=== PATIENT | male | born 1960 | race Caucasian/White ===

== ENCOUNTER 2020-12-14 17:31 | Emergency (ER) | payer OTHER, SELFPAY ==
--- NOTE | ~2020-12-14 | CT_ITS ---
EXAMINATION: CT ABDOMEN AND PELVIS WITH CONTRAST CLINICAL INFORMATION: Right inguinal pain COMPARISON: None TECHNIQUE: Multidetector volumetric images were obtained from the superior aspect of the liver through the pubic symphysis following administration 85 mL of Omnipaque 350 intravenous contrast. Sagittal and coronal reformatted images were obtained on the technologist's workstation. Oral contrast: No This CT examination was performed using dose optimization techniques as appropriate, variously including the following: *Automated exposure control *Adjustment of mA and/or kV according to patient size (this includes techniques or standardized protocols for targeted exams where dose is matched to indication/reason for exam; i.e. extremities or head) *Use of iterative reconstruction technique DLP: 524 mGy-cm FINDINGS: LUNG BASES: The visualized lung bases are unremarkable. Some minimal basilar atelectasis is present. LIVER, GALLBLADDER, AND BILIARY TREE: The liver is normal in size, shape, and attenuation. No focal hepatic lesion or biliary ductal dilatation is present. The gallbladder is unremarkable with no evidence of radiopaque gallstones, gallbladder wall thickening, or obvious pericholecystic inflammatory changes. PANCREAS: Unremarkable. SPLEEN: Unremarkable. ADRENAL GLANDS: Unremarkable. KIDNEYS AND URETERS: The kidneys are normal in size, shape, and attenuation. A left renal cyst is noted. No solid renal masses are seen. No hydronephrosis, hydroureter, or calculi seen. No perinephric stranding. BLADDER: Unremarkable. GASTROINTESTINAL TRACT: A tiny hiatal hernia is present. The small and large bowel are unremarkable. The appendix is unremarkable. ABDOMINAL WALL: No significant hernia is appreciated. LYMPH NODES: No retroperitoneal lymphadenopathy is seen. VASCULAR: Unremarkable. PELVIC VISCERA: Prostate is enlarged measuring 5.7 x 4.4 x 5.6 cm. Seminal vesicles appear normal. In the right inguinal region there is a 2.6 x 1.6 x 1.6 cm mass present which has the shape of the testicle. It is possible that this could represent an undescended testicle. Ultrasound is recommended for further evaluation OSSEOUS STRUCTURES: Unremarkable. CT/CT abdomen pelvis w con IMPRESSION: 1. Ovoid mass right inguinal region which could represent an undescended testicle. Ultrasound is recommended for further evaluation. 2. BPH. 3. No other significant abnormality is seen. Incidental note made of a small hiatal hernia and a left renal cyst.
--- NOTE | ~2020-12-14 | XR_ITS ---
EXAMINATION: XR CHEST CLINICAL INFORMATION: Cough COMPARISON: None TECHNIQUE: Frontal view of the chest was obtained. FINDINGS: No significant abnormality is noted involving the heart, lungs, mediastinum, bony thorax or soft tissues. XR/XR chest 1V IMPRESSION: Unremarkable examination.
--- NOTE | ~2020-12-14 | US_ITS ---
EXAMINATION: US PELVIS, LIMITED/FOLLOW UP CLINICAL INFORMATION: Right inguinal pain. COMPARISON: 12/14/2020. TECHNIQUE: Imaging of the right inguinal region was performed with curved and high-frequency linear transducers. FINDINGS: At the area of clinical concern, there is an area of marked posterior shadowing, possibly iatrogenic. No discrete associated mass is identified. There are no enlarged inguinal lymph nodes. There are no drainable fluid collections. US/US pelvic limited IMPRESSION: No pathologically enlarged inguinal lymph nodes. No drainable fluid collections. Imaging at the area of clinical concern corresponds to an area of prior surgery. There is marked posterior shadowing. No discrete mass is identified. The prior CT raised the possibility of an undescended testicle. Consider correlation with scrotal ultrasound for further evaluation. Alternatively, consider real time evaluation with a Radiologist present.
[2020-12-14 19:03] VITALS: BP 121/84; PULSE 60; RESP 18; TEMP 36.6; O2SAT 9; BMI 26.6
--- NOTE | 2020-12-14 21:20 | ECG_ITS ---
Test Reason : ABDOMINAL PAIN Blood Pressure : / mmHG Vent. Rate : 054 BPM Atrial Rate : 054 BPM P-R Int : 154 ms QRS Dur : 086 ms QT Int : 434 ms P-R-T Axes : 044 079 039 degrees QTc Int : 411 ms Sinus bradycardia Otherwise normal ECG No previous ECGs available Referred By: Margie Harper Electronically Signed By:LAURA EDGAR MD
--- NOTE | 2020-12-14 21:21 | ED_ITS ---
HPI - Abdominal Pain General Chief Complaint: Abdominal Pain Stated Complaint: ?hernia Time Seen by Provider: 12/14/20 21:20 Source: patient Mode of arrival: ambulatory History of Present Illness HPI narrative: This is a 60-year-old male with history of BPH who presents with onset of sharp pain at the right inguinal where he had a repair done with mesh in 2006. Patient states that the pain started this morning and is not associated with fevers, chills, nausea, vomiting, obstipation, and last bowel movement was this morning. Patient states that throughout the day the pain has become more sharp and intense and denies association with urinary pain/burning/frequency or scrotal pain. Related Data Allergies Allergy/AdvReac Type Severity Reaction Status Date / Time clams Allergy Mild RASH Verified 12/14/20 19:03 Review of Systems Review of Systems Pertinent positives and negatives as stated in HPI 10 point review of systems is otherwise negative. Physical Exam Vital Signs: Vital Signs: Last Vital Signs Temp 97.8 F 12/15/20 02:00 Pulse 64 12/15/20 02:00 Resp 18 12/15/20 02:00 BP 125/89 12/15/20 02:00 Pulse Ox 98 12/15/20 02:00 Body Mass Index 26.6 VITAL SIGNS: Reviewed. GENERAL: Well developed, well nourished, mild pain. EARS: Ext canals without abnormality, TMs non-bulging and non-erythematous NOSE: Nares patent bilateral OROPHARYNX: no oral lesions noted, posterior pharynx clear NECK: Supple, no adenopathy LUNGS: Normal breath sounds. CARDIOVASCULAR: Regular rate and rhythm without noted murmurs, no JVD or lower extremity edema. ABDOMEN: Soft, tenderness with palpation of small soft mass at the right inguinal more prominent when patient instructed to cough, non-distended with bowel sounds. NEUROLOGIC: Alert and oriented x 4. Course Course Course Narrative: This is a 60-year-old male with history and clinical presentation most consistent with recurrent right inguinal hernia and suspect strangulated fat, doubt SBO or diverticulitis. On review of all investigations there are no acute findings. Urinalysis is negative and on review of CT scan there is a small ovoid mass that was further evaluated with ultrasound and found not to be consistent with lymph node tissue and given clinical exam most consistent with recurrent hernia. This case was discussed with the on-call surgeon who recommends discharge with NSAIDs and follow up next week with surgery. All of the results and findings were discussed with the patient at bedside to include the plan of treatment and he was discharged in stable condition. MDM - Abdominal Pain Lab Data Result diagrams: 12/14/20 21:44 12/14/20 21:44 Labs: Lab Results 12/14/20 12/14/20 12/14/20 Range/Units 21:31 21:34 21:44 WBC 5.8 (4.8-10.8) X10*3/uL RBC 5.02 (4.60-5.80) X10*6/uL Hgb 14.5 (14.0-18.0) g/dl Hct 44.7 (42-52) % MCV 89.0 (80-98) fL MCH 28.9 (27.0-33.0) pg MCHC 32.4 (31.0-36.0) g/dl RDW 14.1 (11.0-16.0) % Plt Count 199 (160-400) X10*3/uL MPV 11.3 (9.4-12.4) fL Immature Gran % (Auto) 0.2 (0.0-0.4) % Neut % (Auto) 47.2 (45-73) % Lymph % (Auto) 38.0 (20-40) % [place] % (Auto) 9.6 (2-11) % Eos % (Auto) 4.3 H (0-4) % Baso % (Auto) 0.7 (0-2) % Lymph # (Auto) 2.2 (1.2-4.9) X10*3/uL [place] # (Auto) 0.6 (0.1-1.2) X10*3/uL Eos # (Auto) 0.3 (0.0-0.4) X10*3/uL Baso # (Auto) 0.0 (0.0-0.2) X10*3/uL Abs Immat Gran (auto) 0.01 (0.00-0.03) X10*3/uL Absolute Neuts (auto) 2.8 (2.0-8.3) X10*3/uL Absolute Nucleated RBC 0.000 (0.0-0.012) X10*3/uL Nucleated RBC % (auto) 0.0 (0.0-0.2) /100WBC Sodium (135-145) mmol/L Potassium (3.3-5.1) mmol/L Chloride (96-108) mmol/L Carbon Dioxide (22-29) mmol/L Anion Gap (12-20) BUN (9-16) mg/dL Creatinine (0.5-1.4) mg/dL Estim Creat Clear Calc Estimated GFR Random Glucose (60-115) mg/dL Lactic Acid (0.5-2.0) mmol/L Calcium (8.4-10.2) mg/dL Total Bilirubin (0.0-1.0) mg/dL AST (5-37) U/L ALT (0-40) U/L Alkaline Phosphatase (39-117) U/L Total Protein (6.5-8.0) g/dL Albumin (3.5-5.0) g/dL Urine Color YELLOW Urine Appearance CLEAR Urine pH 5.5 (5.0-8.0) Ur Specific [place] >= 1.030 H (1.005-1.025) Urine Protein NEG (NEG-TRACE) MG/DL Urine Glucose (UA) NEG (NEG) MG/DL Urine Ketones NEG (NEG) MG/DL Urine Blood NEG (NEG) Urine Nitrite NEG (NEG) Ur Leukocyte Esterase NEG (NEG) COVID-19 (LENNY) Negative (Negative) COVID-19 Clin Com See Note 12/14/20 12/14/20 Range/Units 21:44 21:44 WBC (4.8-10.8) X10*3/uL RBC (4.60-5.80) X10*6/uL Hgb (14.0-18.0) g/dl Hct (42-52) % MCV (80-98) fL MCH (27.0-33.0) pg MCHC (31.0-36.0) g/dl RDW (11.0-16.0) % Plt Count (160-400) X10*3/uL MPV (9.4-12.4) fL Immature Gran % (Auto) (0.0-0.4) % Neut % (Auto) (45-73) % Lymph % (Auto) (20-40) % [place] % (Auto) (2-11) % Eos % (Auto) (0-4) % Baso % (Auto) (0-2) % Lymph # (Auto) (1.2-4.9) X10*3/uL [place] # (Auto) (0.1-1.2) X10*3/uL Eos # (Auto) (0.0-0.4) X10*3/uL Baso # (Auto) (0.0-0.2) X10*3/uL Abs Immat Gran (auto) (0.00-0.03) X10*3/uL Absolute Neuts (auto) (2.0-8.3) X10*3/uL Absolute Nucleated RBC (0.0-0.012) X10*3/uL Nucleated RBC % (auto) (0.0-0.2) /100WBC Sodium 143 (135-145) mmol/L Potassium 4.2 (3.3-5.1) mmol/L Chloride 108 (96-108) mmol/L Carbon Dioxide 29 (22-29) mmol/L Anion Gap 10 L (12-20) BUN 14 (9-16) mg/dL Creatinine 0.91 (0.5-1.4) mg/dL Estim Creat Clear Calc 78.8 Estimated GFR > 60 Random Glucose 91 (60-115) mg/dL Lactic Acid 0.6 (0.5-2.0) mmol/L Calcium 8.9 (8.4-10.2) mg/dL Total Bilirubin 0.4 (0.0-1.0) mg/dL AST 18 (5-37) U/L ALT 18 (0-40) U/L Alkaline Phosphatase 71 (39-117) U/L Total Protein 6.9 (6.5-8.0) g/dL Albumin 4.3 (3.5-5.0) g/dL Urine Color Urine Appearance Urine pH (5.0-8.0) Ur Specific [place] (1.005-1.025) Urine Protein (NEG-TRACE) MG/DL Urine Glucose (UA) (NEG) MG/DL Urine Ketones (NEG) MG/DL Urine Blood (NEG) Urine Nitrite (NEG) Ur Leukocyte Esterase (NEG) COVID-19 (LENNY) (Negative) COVID-19 Clin Com ECG Data Attestation: I personally reviewed and interpreted this ECG as follows: Prior ECG tracings: not available for review Interpretation: Sinus bradycardia, HR-54, no evidence of acute ischemia, IA/QRS/QTC are within normal limits. Discharge Plan Discharge Clinical Impression: Recurrent right inguinal hernia Patient Disposition: Home, Self-Care Instructions: Inguinal Hernia (ED) Additional Instructions: 1. Tylenol 1000 mg, orally, every 6 hours as needed for pain control. Do not exceed 4000 mg within 24 hours. 2. Ibuprofen 600 mg, orally with milk or food, every 6 hours as needed for pain control. Take this medication in conjunction with the Tylenol for increased symptom relief. 3. May utilize heating pad to area for additional symptom relief. 4. Do not do any shoveling of snow, lifting of greater than 1 gal of milk, and follow-up with surgery by calling the office on Thursday. The referral is listed below. Do not hesitate to return to the emergency department should she develop any fevers, chills, nausea, vomiting, or the inability to pass gas from below. Referrals: Ag Duron PA [Primary Care Provider] - 2 days (Re-evaluation of right inguinal recurrent hernia.) Ld Timmons MD [Physician] - 2 days (Please evaluate patient for suspected right inguinal hernia recurrence without obstructive symptoms.) [facility] Past Medical History Source: nursing notes reviewed Medical History Chronic low back pain Enlarged prostate Surgical History H/O hernia repair Social History Social History Alcohol intake: former Smoking Status: Never smoker Use of substances other than those prescribed or required for medical reasons: No Advance Directives: No Advance Directives Information Provided: Yes
[2020-12-14 21:26] VITALS: BP 132/80; PULSE 54; RESP 18; TEMP 36.4; O2SAT 100
[2020-12-14 21:51] LABS: MANUAL DIFF FLAG NO
[2020-12-14] MEDS: 0.9 % Sodium Chloride 1,000 ML 999 ML IV (21:52)
[2020-12-14 21:54] LABS: Basophils Percent Auto 0.7 % (0-2); Eosinophils Absolute Auto 0.3 X10*3/uL (0.0-0.4); Eosinophils Percent Auto 4.3 % (0-4); Hematocrit 44.7 % (42-52); Hemoglobin 14.5 g/dl (14.0-18.0); Imm Gran Abs Auto 0.01 X10*3/uL (0.00-0.03); Imm Gran Pct Auto 0.2 % (0.0-0.4); Lymphocytes Absolute Auto 2.2 X10*3/uL (1.2-4.9); Mean Corpuscular HGB Conc 32.4 g/dl (31.0-36.0); Mean Corpuscular Hemoglobin 28.9 pg (27.0-33.0); Mean Platelet Volume 11.3 fL (9.4-12.4); Monocytes Absolute Auto 0.6 X10*3/uL (0.1-1.2); Monocytes Percent Auto 9.6 % (2-11); Neutrophils Absolute Auto 2.8 X10*3/uL (2.0-8.3); Neutrophils Percent Auto 47.2 % (45-73); Platelet Count 199 X10*3/uL (160-400); Red Blood Count 5.02 X10*6/uL (4.60-5.80); Red Cell Distribution Width 14.1 % (11.0-16.0); White Blood Count 5.8 X10*3/uL (4.8-10.8)
[2020-12-14 21:57] LABS: Glucose Urine UA NEG (NEG); Leukocyte Esterase Urine NEG (NEG); Nitrite Urine NEG (NEG); PH 5.5 (5.0-8.0); Specific Gravity - Urine >= 1.030 (1.005-1.025); Urine Blood NEG (NEG); Urine Ketones NEG (NEG); Urine Protein NEG (NEG-TRACE)
[2020-12-14 21:58] LABS: Appearance Urine CLEAR; Color Urine YELLOW
[2020-12-14 22:09] LABS: Lactic Acid 0.6 mmol/L (0.5-2.0)
[2020-12-14 22:12] VITALS: BP 116/81; PULSE 66; RESP 18; TEMP 36.4; O2SAT 100
[2020-12-14 22:13] LABS: Alanine Aminotransferase 18 U/L (0-40); Albumin Level 4.3 g/dL (3.5-5.0); Alkaline Phosphatase 71 U/L (39-117); Anion Gap 10 (12-20); Aspartate Amino Transferase 18 U/L (5-37); Bilirubin Total 0.4 mg/dL (0.0-1.0); Blood Urea Nitrogen 14 mg/dL (9-16); Calcium 8.9 mg/dL (8.4-10.2); Carbon Dioxide 29 mmol/L (22-29); Chloride 108 mmol/L (96-108); Creatinine Clr Calc Pharmacy 78.8; Estimated Glomerular Filt Rate > 60; Glucose Random 91 mg/dL (60-115); Potassium 4.2 mmol/L (3.3-5.1); Sodium 143 mmol/L (135-145); Total Protein 6.9 g/dL (6.5-8.0)
[2020-12-14 22:13] LABS: COVID-19 Test Negative (Negative); IDNOW Serial# 9DD0AD1C
[2020-12-14] MEDS: iohexoL 350 MG/ML 100 ML INFUS..BTL IV (22:30)
[2020-12-14 22:44] VITALS: BP 99/52; PULSE 68; RESP 18; O2SAT 98
[2020-12-14 23:48] VITALS: BP 131/86; PULSE 61; RESP 18; TEMP 36.6; O2SAT 98
[2020-12-14] MEDS: Acetaminophen 325 MG TABLET 975 MG PO (23:59)
[2020-12-15] MEDS: Ketorolac Tromethamine 15 MG/ML VIAL IVPUSH
[2020-12-15 02:00] VITALS: BP 125/89; PULSE 64; RESP 18; TEMP 36.6; O2SAT 98
== END 2020-12-15 03:20 | disposition home or self-care (01) ==
PROVIDERS: Emergency Provider Student in an Organized Health Care Education/Training Program; PCP Physician Assistant Medical
DX: K40.91 Unilateral inguinal hernia, without obstruction or gangrene, recurrent (principal); Z20.822 Contact with and (suspected) exposure to COVID-19
CPT/HCPCS: 36415; 71045; 74177; 76857; 80053; 81003; 83605; 85025; 87635; 93005; 96361; 96374; 99284; J1885; Q9967

== ENCOUNTER → 2020-12-26 14:26 | Outpatient (BNVA) | payer OTHER, SELFPAY | PROVIDERS: PCP Physician Assistant Medical; Visit Provider Surgery | DX: R10.31 Right lower quadrant pain (principal) | CPT/HCPCS: 99202 ==

== ENCOUNTER 2021-09-23 11:38 | Day surgery (SDC) | payer OTHER, SELFPAY ==
[2021-09-17 15:13] VITALS: BMI 28.5
--- NOTE | 2021-09-20 09:39 | P.CONAN_ITS ---
Documented by User: Marylin Cohn NP 09/20/21 09:41 HPI - Anesthesia Eval Consult details Narrative: 60yo M for Colonoscopy PMFSH Active Problems Active Problems: All Active Problems (Updated 09/17/21 @ 12:36 by Carlyn Estrada RN) Severe right groin pain (Acute) Past Medical History Medical History (Updated 09/17/21 @ 12:36 by Carlyn Estrada RN) Chronic low back pain Enlarged prostate Post traumatic stress disorder (PTSD) Severe right groin pain Family History Family History Father History of cancer of unknown primary site Maternal Grandfather History of cancer of unknown primary site Surgical History Surgical History (Updated 09/17/21 @ 12:36 by Carlyn Estrada RN) H/O hernia repair Hx of colonoscopy Hx of hemorrhoidectomy Social History Social History Alcohol intake: former Patient Tobacco Use Status: Former Tobacco user Second Hand Smoke Exposure: No Use of substances other than those prescribed or required for medical reasons: No Are you DNR?: No Advance Directives: No Advance Directives Information Provided: Yes Advance Directives on File: No Meds Allergies Allergy/AdvReac Type Severity Reaction Status Date / Time clams Allergy Mild RASH Verified 12/26/20 14:38 Home Medications Medication Instructions Recorded Confirmed Last Taken Type finasteride 5 mg tablet 5 mg PO DAILY 12/26/20 Unknown History ibuprofen 600 mg tablet 600 mg PO Q8H PRN 12/26/20 09/21/21 History sertraline 50 mg tablet 50 mg PO DAILY 12/26/20 09/23/21 History tamsulosin 0.4 mg capsule 0.4 mg PO DAILY 12/26/20 Unknown History trazodone 100 mg tablet 100 mg PO DAILY 12/26/20 Unknown History Exam Exam Date and Time: September 20, 2021 0939 Height,Weight and Vital Signs: Height 5 ft 6 in Weight 80.286 kg Narrative Narrative: EKG 12/2020 Vent. Rate : 054 BPM ? ? Atrial Rate : 054 BPM ?? P-R Int : 154 ms? QRS Dur : 086 ms ? ? QT Int : 434 ms ? ? ? P-R-T Axes : 044 079 039 degrees ?? QTc Int : 411 ms ? Sinus bradycardia Otherwise normal ECG No previous ECGs available Assessment and Plan Assessment Anesthesia Assessment: Chart Reviewed Documented by User: Camilla Miller MD 09/23/21 12:11 [facility] Past Medical History Medical History (Updated 09/17/21 @ 12:36 by Carlyn Estrada, RN) Chronic low back pain Enlarged prostate Post traumatic stress disorder (PTSD) Severe right groin pain Family History Family History Father History of cancer of unknown primary site Maternal Grandfather History of cancer of unknown primary site Family history of problems with anesthesia: No Surgical History Surgical History (Updated 09/17/21 @ 12:36 by Carlyn Estrada RN) H/O hernia repair Hx of colonoscopy Hx of hemorrhoidectomy History of Problems with Anesthesia: No Social History Social History Alcohol intake: former Patient Tobacco Use Status: Former Tobacco user Second Hand Smoke Exposure: No Use of substances other than those prescribed or required for medical reasons: No Are you DNR?: No Advance Directives: No Advance Directives Information Provided: Yes Advance Directives on File: No Meds Allergies Allergy/AdvReac Type Severity Reaction Status Date / Time clams Allergy Mild RASH Verified 12/26/20 14:38 Home Medications Medication Instructions Recorded Confirmed Last Taken Type finasteride 5 mg tablet 5 mg PO DAILY 12/26/20 Unknown History ibuprofen 600 mg tablet 600 mg PO Q8H PRN 12/26/20 09/21/21 History sertraline 50 mg tablet 50 mg PO DAILY 12/26/20 09/23/21 History tamsulosin 0.4 mg capsule 0.4 mg PO DAILY 12/26/20 Unknown History trazodone 100 mg tablet 100 mg PO DAILY 12/26/20 Unknown History Exam Airway Mallampati Class: II TM Dist: >3cm Neck ROM: Full Heart: rrr Lungs: cta Assessment and Plan Assessment Anesthesia Assessment: Anesthesia Plan Discussed and Chart Reviewed Final Anesthetic Review Family History of Problems with Anesthesia: No History of Problems with Anesthesia: No NPO: Yes (Sip water med) ASA Class: II Final Preanesthetic Review: No Changes in Pt Med Stat, Meds/Allgs Chart Reviewed and Consent Obtained/Reviewed Patient Risk: Intermediate Procedure Risk: Intermediate Anesthetic Plan Anesthetic Plan: MAC: Disposition: Standard PACU
[2021-09-23 11:53] VITALS: BP 115/74; PULSE 71; RESP 16; TEMP 36.2; O2SAT 98
[2021-09-23] MEDS: Lactated Ringers 1,000 ML 100 ML IVCONT (12:00)
--- NOTE | 2021-09-23 12:50 | HO.ANESPROP2 ---
[facility] Active Problems Active Problems: All Active Problems (Updated 09/17/21 @ 12:36 by Carlyn Estrada RN) Severe right groin pain (Acute) Past Medical History Medical History Chronic low back pain Enlarged prostate Post traumatic stress disorder (PTSD) Severe right groin pain Functional capacity: independent ambulation Family History Family History Father History of cancer of unknown primary site Maternal Grandfather History of cancer of unknown primary site Family history of problems with anesthesia: No Surgical History Surgical History (Updated 09/17/21 @ 12:36 by Carlyn Estrada RN) H/O hernia repair Hx of colonoscopy Hx of hemorrhoidectomy History of Problems with Anesthesia: No Social History Social History Alcohol intake: former Patient Tobacco Use Status: Former Tobacco user Second Hand Smoke Exposure: No Use of substances other than those prescribed or required for medical reasons: No Are you DNR?: No Advance Directives: No Advance Directives Information Provided: Yes Advance Directives on File: No Meds Allergies Allergy/AdvReac Type Severity Reaction Status Date / Time clams Allergy Mild RASH Verified 12/26/20 14:38 Active Medications: Current Medications Lactated Ringer's (Lr) 1,000 mls @ 100 mls/hr IVCONT .Q10H ASA Last Admin: 09/23/21 12:00 Dose: 100 mls/hr Documented by: Sodium Biphosphate/Sodium Phosphate (Sodium Phosphate,[place]-Dibasic 133 Ml Enema) 133 ml ID ONCE PRN PRN Reason: Poor Colonoscopy Prep Results Home Medications Medication Instructions Recorded Confirmed Last Taken Type finasteride 5 mg tablet 5 mg PO DAILY 12/26/20 Unknown History ibuprofen 600 mg tablet 600 mg PO Q8H PRN 12/26/20 09/21/21 History sertraline 50 mg tablet 50 mg PO DAILY 12/26/20 09/23/21 History tamsulosin 0.4 mg capsule 0.4 mg PO DAILY 12/26/20 Unknown History trazodone 100 mg tablet 100 mg PO DAILY 12/26/20 Unknown History Exam Exam Date and Time: September 23, 2021 1250 Height,Weight and Vital Signs: Height 5 ft 6 in Weight 80.286 kg Last Vital Signs Temp 97.2 F 09/23/21 11:53 Pulse 71 09/23/21 11:53 Resp 16 09/23/21 11:53 BP 115/74 09/23/21 11:53 Pulse Ox 98 09/23/21 11:53 Airway Mallampati Class: II TM Dist: >3cm Neck ROM: Full Heart: RRR Lungs: CTA Assessment and Plan Final Anesthetic Review Family History of Problems with Anesthesia: No History of Problems with Anesthesia: No ASA Class: II Final Preanesthetic Review: No Changes in Pt Med Stat Patient Risk: Low Procedure Risk: Low Anesthetic Plan Anesthetic Plan: MAC: Disposition: Standard PACU
[2021-09-23 13:46] VITALS: BP 115/74; PULSE 71; RESP 16; TEMP 36.2; O2SAT 98
--- NOTE | 2021-09-23 13:47 | P.BOP_ITS ---
Brief Operative Note Date of Service: 09/23/21 Pre-op diagnosis: Screening Post-op diagnosis: other (Colon polyp) Procedure: Colonoscopy to the cecum and TI with cold snare polypectomy Surgeon: Bert Godwin Anesthesia: MAC Was an Candle Wicker used for this Procedure?: No Estimated blood loss (mL): 2.0 Pathology: none sent Condition: stable Disposition: PACU
[2021-09-23 14:00] VITALS: BP 90/45; PULSE 79; RESP 20; O2SAT 97
--- NOTE | 2021-09-23 14:13 | HO.POSTANES ---
Post Anesthesia Evaluation Post Anesthesia Evaluation Vital Signs: Vital Signs Temp Pulse Resp BP Pulse Ox 09/23/21 14:00 79 20 90/45 L 97 09/23/21 13:46 97.2 F 71 16 115/74 98 09/23/21 11:53 97.2 F 71 16 115/74 98 Anesthesia: Monitored Mental Status: Awake Pain Control: Satisfactory Nausea/Vomiting: None Hydration: Adequate Anesthesia-Related Issues: No Anes. Related Issues
[2021-09-23 14:14] VITALS: BP 115/77; PULSE 60; RESP 20; TEMP 36.1; O2SAT 98
--- NOTE | 2021-09-23 15:04 | OP_ITS ---
SURGEON: Bert Godwin MD INDICATIONS: The patient presents for evaluation of colorectal cancer screening. Full consent has been obtained from him for this, including risks of bleeding and perforation. PREOPERATIVE DIAGNOSIS: Colorectal cancer screening. POSTOPERATIVE DIAGNOSIS: PROCEDURE PERFORMED: Colonoscopy to the cecum and terminal ileum with cold snare polypectomy. ESTIMATED BLOOD LOSS: COMPLICATIONS: ANESTHESIA: Monitored anesthesia care. ASSISTANTS: SPECIMENS: POSTOPERATIVE DIAGNOSES: Colorectal cancer screening, colon polyp, diverticulosis and internal hemorrhoids. DESCRIPTION OF PROCEDURE: The patient was placed in the left lateral decubitus position. The digital rectal exam revealed no abnormalities. The Olympus video pediatric colonoscope was entered into the rectum and advanced easily to the cecum. Once in the cecum, I did identify normal-appearing cecal pouch with appendiceal orifice and a normal-appearing ileocecal valve. The terminal ileum was cannulated and appeared normal. Scope was withdrawn back in the colon. The entire cecum and ileocecal valve appeared normal. The scope was slowly withdrawn assessing all mucosal surfaces carefully. Preparation was excellent. In the distal ascending colon, was an approximately 8 mm grossly adenomatous polyp, which was removed by cold snare polypectomy. The polypectomy site appeared clean, without any sign of residual polyp nor significant bleeding. However, the polyp was not recovered. I did not visualize any other polyps, colitis, nor angiodysplasia. There was a mild amount of sigmoid diverticulosis. In the rectum, scope was retroflexed visualizing small internal hemorrhoids, but no other pathology. The rectal mucosa appeared normal. The scope was straightened out and withdrawn from the patient. He tolerated the procedure well and was returned to the recovery area in stable condition. IMPRESSION: 1. Colon polyp, status post snare polypectomy, but not recovered. 2. Diverticulosis. 3. Internal hemorrhoids. PLAN: Given the gross appearance of the polyp, I would recommend a repeat colonoscopy in 5 years. He was advised not to use any aspirin and NSAIDs for 1 week. MD TORSTEN Orta/EMIR / [id number]
== END 2021-09-23 14:44 | disposition home or self-care (01) ==
PROVIDERS: PCP Physician Assistant Medical; Visit Provider Internal Medicine
PROC: 0DJD8ZZ Inspection of Lower Intestinal Tract, Via Natural or Artificial Opening Endoscopic (ICD-10-PCS; CPT 45378; principal; 2021-09-23 12:50)
DX: Z12.11 Encounter for screening for malignant neoplasm of colon (principal); D12.2 Benign neoplasm of ascending colon; K57.30 Diverticulosis of large intestine without perforation or abscess without bleeding; K64.8 Other hemorrhoids; N40.0 Benign prostatic hyperplasia without lower urinary tract symptoms; F43.10 Post-traumatic stress disorder, unspecified; Z79.899 Other long term (current) drug therapy
CPT/HCPCS: 45385

== ENCOUNTER 2021-11-19 12:51 | Emergency (ER) | payer OTHER, SELFPAY ==
--- NOTE | ~2021-11-19 | XR_ITS ---
EXAMINATION: XR LUMBOSACRAL SPINE CLINICAL INFORMATION: Back pain COMPARISON: None TECHNIQUE: Three views of the lumbosacral spine. FINDINGS: No acute fracture or traumatic malalignment. Vertebral body heights maintained. Small endplate osteophytes present throughout the lumbar spine. Moderate facet arthropathy at L4-L5 and L5-S1. Mild bilateral sacroiliac arthrosis. Paraspinal soft tissues unremarkable. Moderate constipation. XR/XR lumbar spine 2-3V IMPRESSION: No acute fracture or traumatic malalignment.
[2021-11-19 14:05] VITALS: BP 133/83; PULSE 82; RESP 18; TEMP 37; O2SAT 96; BMI 25.0
--- NOTE | 2021-11-19 15:28 | ED.BACK ---
HPI - Back Pain/Injury General Chief Complaint: Back Pain/Injury Stated Complaint: Back pain Time Seen by Provider: 11/19/21 15:22 Source: patient and old records reviewed Mode of arrival: ambulatory Limitations: no limitations History of Present Illness HPI Narrative: 61 years old male came in for evaluation low back pain for 2 days. No back pain started after patient was shoveling and was picking wood, patient prescribed pain as constant and severe 10/10 localized to the lower back with no radiation, pain is worse with movement and coughing or trying to bend. Pain is on radiating to the legs, no weakness, numbness, no urinary incontinence. Reviewing old records patient had a CT scan of the abdomen and pelvis less than a year ago, no concern of AAA. Related Data Home Medications Medication Instructions Recorded Confirmed finasteride 5 mg tablet 5 mg PO DAILY 12/26/20 ibuprofen 600 mg tablet 600 mg PO Q8H PRN 12/26/20 sertraline 50 mg tablet 50 mg PO DAILY 12/26/20 tamsulosin 0.4 mg capsule 0.4 mg PO DAILY 12/26/20 trazodone 100 mg tablet 100 mg PO DAILY 12/26/20 Previous Rx's Medication Instructions Recorded diazepam 5 mg tablet (Valium) 5 mg PO BID PRN #10 tab 11/19/21 oxycodone 5 mg tablet 5 mg PO BID PRN #10 tab 11/19/21 Allergies Allergy/AdvReac Type Severity Reaction Status Date / Time clams Allergy Mild RASH Verified 12/26/20 14:38 Review of Systems Review of Systems: All other systems are reviewed and are negative Constitutional: Reports as per HPI and Reports no additional constitutional complaints Eyes: Reports as per HPI and Reports no additional eye complaints Reports system reviewed and no additional complaints, except as documented Cardiovascular: Reports as per HPI and Reports no additional cardiovascular complaints Respiratory: Reports as per HPI and Reports no additional respiratory complaints Gastrointestinal: Reports as per HPI and Reports no additional gastrointestinal complaints Genitourinary: Reports no additional female genitourinary complaints Musculoskeletal: Reports no additional musculoskeletal complaints Skin/Breast: Reports system reviewed and no additional complaints, except as docu Psychiatric: Reports no additional psychiatric complaints Endocrine: Reports no additional endocrine complaints Hematologic/Lymphatic: Reports no additional hematologic/lymphatic complaints Allergic/Immunologic: Reports no additional allergic/immunologic complaints Reports system reviewed and no additional complaints, except as documented and Reports Abnormal speech present PMFSH Past Medical History Medical History Chronic low back pain Enlarged prostate Post traumatic stress disorder (PTSD) Severe right groin pain Surgical History H/O hernia repair Hx of colonoscopy Hx of hemorrhoidectomy Family History Family History Father History of cancer of unknown primary site Maternal Grandfather History of cancer of unknown primary site Social History Social History Alcohol intake: former Patient Tobacco Use Status: Former Tobacco user Second Hand Smoke Exposure: No Advance Directives: No Advance Directives Information Provided: No Physical Exam Vital Signs: Vital Signs: Last Vital Signs Temp 98.6 F 11/19/21 14:05 Pulse 82 11/19/21 14:05 Resp 18 11/19/21 14:05 BP 133/83 11/19/21 14:05 Pulse Ox 96 11/19/21 14:05 BMI result Body Mass Index 25.0 Vital signs have been reviewed as appeared to be correct. Blood pressure normal. Heart rate normal. Respiration rate normal. Temperature normal. Oxygen saturation normal. Appearance: Alert. Oriented X3. No acute distress. Head: Normal external exam. Normocephalic. Atraumatic. No Rosario signs noted. No raccoon eyes noted Eyes: PERRLA. EOMI. Conjunctiva and sclera normal. Eyelids normal. ENT: TM's Normal. Pharynx normal. Uvula midline. Moist mucous membranes. No trismus noted. No drooling noted. No muffled voice noted. Neck: Normal inspection. Neck supple. FROM. No adenopathy. Thyroid Normal. No meningeal signs. No neck mass noted. CVS: Normal heart rate and rhythm. Heart sound normal. No murmurs noted. Pulses normal throughout. Respiratory: No respiratory distress. Painless inspiration. Breath sounds normal. No wheezes/rales/rhonchi noted. Chest nontender. No accessory muscle usage noted or decreased air movement noted. Abdomen: Soft and nontender. Bowel sounds normal in all 4 quadrants. No distention noted. No organomegaly noted. No visible injury noted. Back: paraspinous muscle spasm, no point of tenderness. No step-off, no deformity. Skin: Skin warm and dry. Normal skin color. Normal skin turgor. No rashes/lesions/lacerations noted. Extremities: No lower extremity edema. Extremities exhibit normal range of motion. Extremities nontender. Neuro: Oriented X 3. Cranial nerve exam: II-XII are grossly intact No motor deficit. No sensory deficit. Reflexes normal. Course Course Course Narrative: Assessment and plan. 61-year-old male come in with constant low back pain, physical exam/x-ray is consistent with muscular pain. Patient has no neurological deficits. Will discharge the patient oxycodone/muscle relaxant. MDM - Back Pain/Injury Imaging Data Lumbar spine x-ray: Attestation: I personally reviewed and interpreted this imaging study as follows: Radiologist's impression: No acute fracture or traumatic malalignment. Vertebral body heights maintained. Small endplate osteophytes present throughout the lumbar spine. Moderate facet arthropathy at L4-L5 and L5-S1. Mild bilateral sacroiliac arthrosis. Paraspinal soft tissues unremarkable. Moderate constipation. Discharge Plan Discharge Clinical Impression: Strain of lumbar region Patient Disposition: Home, Self-Care Instructions: Back Pain (ED) Prescriptions: New oxycodone 5 mg tablet 5 mg PO BID PRN (Reason: pain) Qty: 10 RF: 0 diazepam [Valium] 5 mg tablet 5 mg PO BID PRN (Reason: muscle spasm) Qty: 10 RF: 0 No Action ibuprofen 600 mg tablet 600 mg PO Q8H PRN (Reason: Pain) RF: 0 tamsulosin 0.4 mg capsule 0.4 mg PO DAILY RF: 0 trazodone 100 mg tablet 100 mg PO DAILY RF: 0 sertraline 50 mg tablet 50 mg PO DAILY RF: 0 finasteride 5 mg tablet 5 mg PO DAILY RF: 0 Referrals: Ag Duron PA [Primary Care Provider] - 2 days
[2021-11-19] MEDS: oxyCODONE HCl Immed Release 5 MG TABLET PO (15:44)
[2021-11-19] MEDS: diazePAM 5 MG TABLET PO (15:45)
== END 2021-11-19 16:27 | disposition home or self-care (01) ==
LOC: HO.ED 15:53
PROVIDERS: Emergency Provider Emergency Medicine; PCP Physician Assistant Medical
DX: S39.012A Strain of muscle, fascia and tendon of lower back, initial encounter (principal); X50.0XXA Overexertion from strenuous movement or load, initial encounter; Y93.H1 Activity, digging, shoveling and raking; Y92.017 Garden or yard in single-family (private) house as the place of occurrence of the external cause; Y99.9 Unspecified external cause status
CPT/HCPCS: 72100; 99283

== ENCOUNTER 2022-03-09 11:38 | Emergency (ER) | payer OTHER, SELFPAY ==
[2022-03-09 11:45] VITALS: BP 127/88; PULSE 78; RESP 18; TEMP 36.8; O2SAT 99; BMI 28.2
--- NOTE | 2022-03-09 12:43 | ED_ITS ---
HPI - General Adult General Chief complaint: Skin/Abscess/Foreign Body Stated complaint: Allergic reaction Time Seen by Provider: 03/09/22 11:45 Source: patient Mode of arrival: ambulatory Limitations: no limitations History of Present Illness HPI narrative: 61-year-old male presents to ED for resolved allergic reaction. Patient states yesterday after eating clamps he felt his sensation of throat closing and itc hiness to skin that resolved with Benadryl. Patient states then last night when he woke up from sleep and had mild swelling of this left side of the face and left lip that resolved on its own after Benadryl. Patient presently states asymptomatic. Related Data Home Medications Medication Instructions Recorded Confirmed finasteride 5 mg tablet 5 mg PO DAILY 12/26/20 ibuprofen 600 mg tablet 600 mg PO Q8H PRN 12/26/20 sertraline 50 mg tablet 50 mg PO DAILY 12/26/20 tamsulosin 0.4 mg capsule 0.4 mg PO DAILY 12/26/20 trazodone 100 mg tablet 100 mg PO DAILY 12/26/20 Previous Rx's Medication Instructions Recorded diazepam 5 mg tablet (Valium) 5 mg PO BID PRN #10 tab 11/19/21 oxycodone 5 mg tablet 5 mg PO BID PRN #10 tab 11/19/21 diphenhydramine HCl 25 mg capsule 25 mg PO TID PRN 7 Days #21 cap 03/09/22 (Benadryl) epinephrine 0.3 mg/0.3 mL 0.3 mg (0.3 mL) IM Q4H PRN #2 ea 03/09/22 injection, auto-injector (EpiPen) famotidine 20 mg tablet (Pepcid) 20 mg PO BID 7 Days #14 tab 03/09/22 prednisone 20 mg tablet 40 mg PO DAILY 5 Days #10 tab 03/09/22 Allergies Allergy/AdvReac Type Severity Reaction Status Date / Time clams Allergy Mild RASH Verified 03/09/22 11:45 Review of Systems Review of Systems: Resolved allergic reaction Yes all other systems are reviewed and are negative PMFSH Past Medical History Medical History Chronic low back pain Enlarged prostate Post traumatic stress disorder (PTSD) Severe right groin pain Surgical History H/O hernia repair Hx of colonoscopy Hx of hemorrhoidectomy Family History Family History Father History of cancer of unknown primary site Maternal Grandfather History of cancer of unknown primary site Social History Social History Alcohol intake: former Patient Tobacco Use Status: Former Tobacco user Second Hand Smoke Exposure: No Advance Directives: No Advance Directives Information Provided: No Physical Exam ED Vital Signs: Vital Signs - 24 hr 03/09/22 11:45 Temperature 98.3 F Pulse Rate 78 Respiratory Rate 18 Blood Pressure 127/88 Pulse Oximetry 99 BMI result Body Mass Index 28.2 Const General: cooperative, healthy appearing, comfortable, no acute distress, well developed and alert Orientation/consciousness: patient oriented x3 HENMT Other: Negative for any facial swelling. Negative any lip swelling. Patient is speaking in full sentences. Negative any uvular swelling. Head: Yes normal to inspection, Yes No palpable skull fracture present, Yes normocephalic and Yes atraumatic Eyes General: appearance normal, both eyes and all related structures Neck Neck: Yes normal visual inspection, Yes full ROM, Yes no lymphadenopathy, Yes no meningeal signs, Yes trachea midline, No anterior neck swelling and No tender Chest Chest palpation & inspection: normal inspection of the chest and normal palpation of entire chest wall Resp Effort & Inspection: normal respiratory effort and able to speak in complete sentences Auscultation: clear to auscultation bilaterally Cardio Jugular venous distension: no JVD Heart sounds: S1 normal heart sound present and S2 normal heart sound present GI Inspection: Yes normal to inspection and No abdominal wall ecchymosis Palpation (GI): Soft to palpation, not firm, nontender, no guarding and not rigid General: No CVA tenderness and Yes no CVA tenderness Back/Spine/Pelvis Back: no CVA tenderness, No CVA tenderness and No sacral edema Skin General skin exam: no rashes or lesions noted and elasticity normal Neuro General: patient oriented x3, gait normal and no meningeal signs Cranial nerves: Yes CN's II-XII intact bilaterally Extrem General: Yes normal to inspection and Yes full ROM Psych Appearance: grossly normal, well kempt and not disheveled Course Course Course Narrative: Presently patient is symptomatic Reevaluation(s) Reevaluation #1: Due to patient's status sensation of throat closing yesterday. Patient was discharged epinephrine Benadryl, Solu-Medrol, and Pepcid Time: 12:53 Medical Decision Making MDM Narrative Medical decision making narrative: Allergic reaction Discharge Plan Discharge Clinical Impression: Allergic reaction Patient Disposition: Home, Self-Care Instructions: General Allergic Reaction (ED) Additional Instructions: You will be discharged with Benadry, prednisone, and Pepcid for allergic reaction. You will be also discharged with EpiPen to prevent anaphylaxis. Return to the ED for sensation of throat closing, lip swelling, shortness of breath, worsening rash, fever, chills, or any other concerning symptoms. Please follow-up with primary care provider Prescriptions: New diphenhydramine HCl [Benadryl] 25 mg capsule 25 mg PO TID PRN (Reason: allergic reaction) 7 Days Qty: 21 0RF prednisone 20 mg tablet 40 mg PO DAILY 5 Days Qty: 10 0RF famotidine [Pepcid] 20 mg tablet 20 mg PO BID 7 Days Qty: 14 0RF epinephrine [EpiPen] 0.3 mg/0.3 mL auto-injector 0.3 mg IM Q4H PRN (Reason: anaphylaxis) Qty: 2 0RF Rx Instructions: inject into thigh No Action oxycodone 5 mg tablet 5 mg PO BID PRN (Reason: pain) Qty: 10 0RF diazepam [Valium] 5 mg tablet 5 mg PO BID PRN (Reason: muscle spasm) Qty: 10 0RF ibuprofen 600 mg tablet 600 mg PO Q8H PRN (Reason: Pain) 0RF tamsulosin 0.4 mg capsule 0.4 mg PO DAILY 0RF trazodone 100 mg tablet 100 mg PO DAILY 0RF sertraline 50 mg tablet 50 mg PO DAILY 0RF finasteride 5 mg tablet 5 mg PO DAILY 0RF Interventions: ED Discharge Assessment Last Done: 03/09/22 13:09 Discharge Date/Time: 03/09/22 13:11 Print Language: Albanian
== END 2022-03-09 13:11 | disposition home or self-care (01) ==
PROVIDERS: Emergency Provider Emergency Medicine; PCP Physician Assistant Medical
DX: L50.0 Allergic urticaria (principal); Z79.899 Other long term (current) drug therapy
CPT/HCPCS: 99283

== ENCOUNTER 2023-12-14 08:09 | Outpatient (AMB) | payer OTHER, SELFPAY ==
--- NOTE | 2023-12-14 08:13 | MHC.OFFVIS ---
Intake Vital Signs 12/14/23 08:19 Height 5 ft 6 in Weight 177 lb BMI 28.6 BP 134/89 Blood Pressure Location Rt brachial Position Sitting Pulse 73 Intake Visit Reasons: Hemorrhoids Intake Note: This patient presents for an assessment for hemorrhoids. Pt c/o; reports no rectal bleeding or pain, reports no constipation. Die Trouble Shooter Required: No Accompanied by: Self / Same As Patient Allergies clams Allergy (Mild, Verified 12/14/23 08:17) RASH Medication List - Last Reconciled 12/14/23 by Ld Timmons MD aspirin (Adult Low Dose Aspirin) 81 mg PO DAILY buspirone 5 mg PO BID diazepam (Valium) 5 mg PO BID PRN diphenhydramine HCl (Benadryl) 25 mg PO TID PRN 7 days epinephrine (EpiPen) 0.3 mg (0.3 mL) IM Q4H PRN famotidine (Pepcid) 20 mg PO BID 7 days finasteride 5 mg PO DAILY ibuprofen 600 mg PO Q8H PRN oxycodone 5 mg PO BID PRN prednisone 40 mg (2 x 20 mg) PO DAILY 5 days sertraline 50 mg PO DAILY tamsulosin 0.4 mg PO DAILY trazodone 100 mg PO DAILY HPI Hemorrhoids HPI Details 63-year-old male referred for hemorrhoid issues. He says that for the past several years, he had been noticing his hemorrhoids to ?come out? and become swollen and painful. He says that this has been going on frequently more so lately. He says that he has been using stool softeners as well as a cream to help on these are out. He says [place] He says he had similar symptoms before that. He states that the symptoms have been bothering her anymore and he wants to undergo another hemorrhoidectomy. [facility] Medical History (Updated 12/14/23 @ 08:35 by Ld Timmons MD) Hemorrhoids that prolapse with straining and require manual replacement back inside anal canal Post traumatic stress disorder (PTSD) Severe right groin pain Enlarged prostate Chronic low back pain Surgical History Hx of hemorrhoidectomy Hx of colonoscopy H/O hernia repair Family History Father History of cancer of unknown primary site Maternal Grandfather History of cancer of unknown primary site Social History Alcohol intake: former Patient Tobacco Use Status: Former Tobacco user Second Hand Smoke Exposure: No Review of Systems Const Denies chills and Denies fever(s) Card Denies chest pain, Denies dyspnea and Denies dyspnea on exertion Resp Denies cough, Denies dyspnea and Denies dyspnea on exertion GI Denies hematochezia and Reports constipation Denies hematuria and Denies difficulty urinating Musc Denies back pain and Denies limited range of motion Neuro Denies focal weakness and Denies convulsions Psych Denies depression and Denies mood swings Physical Exam Vital Signs: Last Vital Signs Pulse 73 12/14/23 08:19 BP 134/89 12/14/23 08:19 BMI result Body Mass Index 28.6 Const General: comfortable and no acute distress Orientation/consciousness: patient oriented x3 Neck Neck: Yes no lymphadenopathy Resp Auscultation: clear to auscultation bilaterally Cardio Rhythm: regular rhythm GI Other: Rectal exam shows external hemorrhoids left and right Palpation (GI): Soft to palpation, nontender and no guarding Neuro General: patient oriented x3 Office Procedures Anoscopy He was in kenny-knife position. The anoscope was gently inserted. A full exam of the anal canal was done. He did have a mix of internal external hemorrhoids on the posterior anal canal. This appears moderate-sized. Smaller hemorrhoids were seen anteriorly. There were no other lesions. There was no bleeding. There was no induration on digital exam. There was no fissure or ulceration. [id number] Assessment & Plan Assessment & Plan (1) Hemorrhoids that prolapse with straining and require manual replacement back inside anal canal: Code(s): K64.2 - Third degree hemorrhoids Plan: He describes frequent prolapse of his hemorrhoids. He says that this become swollen and painful whenever these are prolapse He wants to proceed with hemorrhoidectomy again. I did tell him that his hemorrhoids are moderate-sized and there is always the option of monitoring this. He says that this bother him a lot so he wants to have the hemorrhoidectomy as he is familiar with the procedure. He understands the technique. He is aware of the risks including but not limited to bleeding, infections postop pain. I reviewed with him what to expect postoperatively and he says that he is still familiar He wants to proceed with hemorrhoidectomy. Coding Level of Care Code New Pt Level 3 (46514) Diagnoses Hemorrhoids that prolapse with straining and require manual replacement back inside anal canal K64.2 CPT Codes Details - CPT: 67749-[id number] ([id number])
[2023-12-14 08:19] VITALS: BP 134/89; PULSE 73; BMI 28.6
== END 2023-12-14 08:50 | disposition home or self-care (01) ==
PROVIDERS: PCP Physician Assistant Medical; Referring Provider Surgery; Visit Provider Surgery
DX: K64.2 Third degree hemorrhoids (principal); K64.8 Other hemorrhoids
CPT/HCPCS: 46600; 99213

== ENCOUNTER → 2023-12-14 08:09 | Outpatient (BNVA) | payer OTHER, SELFPAY | PROVIDERS: PCP Physician Assistant Medical; Referring Provider Physician Assistant Medical; Visit Provider Surgery | DX: K64.2 Third degree hemorrhoids (principal) | CPT/HCPCS: 46600; 99212 ==

== ENCOUNTER 2024-01-15 07:56 | Day surgery (SDC) | payer OTHER, SELFPAY ==
[2024-01-13 10:54] VITALS: BMI 28.6
[2024-01-13 11:14] VITALS: BMI 27.4
[2024-01-15] MEDS: Lactated Ringers 1,000 ML 80 ML IVCONT (08:22)
[2024-01-15 08:27] VITALS: BP 117/90; PULSE 65; RESP 18; TEMP 36.7; O2SAT 96
--- NOTE | 2024-01-15 08:42 | P.HPSUR_ITS ---
Pre-Procedural Eval Section A - 24 Hr Update-Section A only Date of Service: 01/15/24 Section B - Complete if H&P > 30 days Chief Complaint: Third degree hemorrhoids Details of Present Illness: has prolapsing hemorrhoids Relevant Social History: None Present Medications: see Short Stay Collaborative assessment Medical History: Significant History (BPH) Allergies: Allergies Allergy/AdvReac Type Severity Reaction Status Date / Time clams Allergy Intermediate RASH, Verified 01/15/24 08:16 swelling Review of Systems Sugical H&P ROS: Negative: Constitution, Cardiovascular, Respiratory, Neurological, Psychiatric, Hem-Onc, Allergic/Immunologic, Gastrointestinal, Genitourinary, Musculoskeletal, Integumentary, Endocrine and Eyes/Ears/Nose/Throat Exam Surgical H&P Exam: Normal: HEENT, Normal: Heart, Normal: Lungs, Normal: Extrem ities, Normal: Abdomen, Normal: Skin and Normal: Neurological Exam Comment: internal and external hemorrhoids Plan Diagnosis/Plan: Unchanged I have reviewed the history and physical and performed a pertinent physical examination on my patient. No changes have occurred unless specified. Time Spent With Patient Time: Total time managing care of this patient today ____ minutes.
--- NOTE | 2024-01-15 08:59 | P.CONAN_ITS ---
HPI - Anesthesia Eval Consult details Narrative: Internal prolapsed hemorrhoids PMFSH Active Problems Active Problems: All Active Problems (Updated 12/14/23 @ 08:35 by Ld Timmons MD) Hemorrhoids that prolapse with straining and require manual replacement back inside anal canal (Acute) Severe right groin pain (Acute) Past Medical History Medical History Hemorrhoids that prolapse with straining and require manual replacement back inside anal canal Post traumatic stress disorder (PTSD) Severe right groin pain Enlarged prostate Chronic low back pain Family History Family History Father History of cancer of unknown primary site Maternal Grandfather History of cancer of unknown primary site Family history of problems with anesthesia: No Surgical History Surgical History Hx of hemorrhoidectomy Hx of colonoscopy H/O hernia repair History of Problems with Anesthesia: No Social History Social History Household Members: Spouse Housing: House Are you a primary care program director to a significant other at home: No Do you presently have visiting nurse or other home services: No Alcohol intake: former Patient Tobacco Use Status: Former Tobacco user Second Hand Smoke Exposure: No Use of substances other than those prescribed or required for medical reasons: No Are you DNR?: No Advance Directives: No Advance Directives Information Provided: Yes Advance Directives on File: No Meds Allergies Allergy/AdvReac Type Severity Reaction Status Date / Time clams Allergy Intermediate RASH, Verified 01/15/24 08:16 swelling Active Medications: Current Medications Lactated Ringer's (Lr) 1,000 mls @ 80 mls/hr IVCONT .[id number] ASA Last Admin: 01/15/24 08:22 Dose: 80 mls/hr Home Medications Medication Instructions Recorded Confirmed Last Taken Type finasteride 5 mg tablet 5 mg PO DAILY 12/26/20 01/13/24 Unknown History ibuprofen 600 mg tablet 600 mg PO Q8H PRN Pain 12/26/20 01/13/24 01/12/24 History sertraline 50 mg tablet 50 mg PO DAILY 12/26/20 01/13/24 09/23/21 History tamsulosin 0.4 mg capsule 0.4 mg PO DAILY 12/26/20 01/13/24 Unknown History trazodone 100 mg tablet 100 mg PO DAILY 12/26/20 01/13/24 Unknown History aspirin 81 mg tablet,delayed 81 mg PO DAILY 12/14/23 01/13/24 01/14/24 History release (Adult Low Dose Aspirin) buspirone 5 mg tablet 5 mg PO BID 12/14/23 01/13/24 Unknown History famotidine 20 mg tablet (Pepcid) 20 mg PO BID PRN Gastric Reflux 01/13/24 01/13/24 Unknown History Exam Height,Weight and Vital Signs: Height 5 ft 6 in Weight 77.111 kg Last Vital Signs Temp 98.0 F 01/15/24 08:27 Pulse 65 01/15/24 08:27 Resp 18 01/15/24 08:27 BP 117/90 H 01/15/24 08:27 Pulse Ox 96 01/15/24 08:27 O2 Del Method Room Air 01/15/24 08:27 Airway Mallampati Class: II TM Dist: >3cm Neck ROM: Full Loose/Missing/Broken Teeth: No Heart: [id number] Lungs: cta b/l Assessment and Plan Assessment Anesthesia Assessment: Anesthesia Plan Discussed, Smoking Cess. Discussed and Chart Reviewed Final Anesthetic Review Family History of Problems with Anesthesia: No History of Problems with Anesthesia: No NPO: Yes ASA Class: II Final Preanesthetic Review: No Changes in Pt Med Stat, Meds/Allgs Chart Reviewed, Consent Obtained/Reviewed and Anes Risks/Benef Reviewed Patient Risk: Intermediate Procedure Risk: Intermediate Assessment/Block/Sedation in : Assess/Block/Sedation- Anesthetic Plan Anesthetic Plan: GA Disposition: Standard PACU
--- NOTE | 2024-01-15 10:31 | W.PM.OPN ---
Operative Note Operative Note Date of Service: 01/15/24 Narrative: Preop diagnosis: Prolapsing hemorrhoid Postop diagnosis: Internal,external hemorrhoid occasional prolapse Procedure: Exam under anesthesia, hemorrhoidectomy x1 column Surgeon: Ld Timmons MD The patient is a 63-year-old male was seen in the office because of complaints of prolapsing hemorrhoids. He wanted to proceed with hemorrhoidectomy. He understood the technique of the planned procedure as well as the risks, benefits, and alternatives. He was brought to the operating room. He was placed in prone kenny-knife position under general anesthesia via endotracheal tube. Buttocks were retracted with wide tape laterally. The perianal area was prepped and draped in the usual sterile fashion. A surgical time-out was done. The patient received Cefotan 2 g IV preoperatively Examination of the anal orifice revealed 1 prominent but non bulky hemorrhoidal column on the posterior a little to the left. I inserted the Peyton Fam retractor. I examined the anal canal circumferentially. This same hemorrhoidal column was seen and was noted to be a mix of internal external. I retracted this with a Taylor grasper. I made a figure of 8 stitch at the pedicle with the chromic 3-0. I made an incision around this hemorrhoidal column to the perianal skin with a blade 15. I closed the incision with a running chromic 3-0 stitch. Additional hemostatic sutures were placed for oozing areas The examination of the rest of the anal orifice did not reveal any other large hemorrhoidal columns or any lesions I infiltrated the perianal area with Marcaine 0.5% for postop analgesia and the procedure was completed The patient tolerated procedure well. There were no immediate complications. Initial and final counts of sponges and instruments were correct. Estimated loss was about 20 cc The patient was extubated without difficulty and transferred to the recovery room with stable vital signs .
[2024-01-15 10:46] VITALS: BP 117/70; PULSE 80; RESP 16; TEMP 36.3; O2SAT 100
[2024-01-15 10:50] VITALS: BP 120/83; PULSE 105; RESP 16; O2SAT 100
[2024-01-15 10:55] VITALS: BP 116/78; PULSE 91; RESP 16; O2SAT 96
[2024-01-15 11:00] VITALS: BP 119/77; PULSE 82; RESP 14; O2SAT 95
[2024-01-15 11:16] VITALS: BP 106/77; PULSE 67; RESP 20; TEMP 36.4; O2SAT 96
== END 2024-01-15 11:30 | disposition home or self-care (01) ==
PROVIDERS: PCP Physician Assistant Medical; Visit Provider Surgery
PROC: (CPT 46255; principal; 2024-01-15 10:10)
DX: K64.2 Third degree hemorrhoids (principal); N40.0 Benign prostatic hyperplasia without lower urinary tract symptoms; G89.29 Other chronic pain; M54.50 Low back pain, unspecified; F43.10 Post-traumatic stress disorder, unspecified; Z79.1 Long term (current) use of non-steroidal anti-inflammatories (NSAID); Z79.82 Long term (current) use of aspirin; Z79.899 Other long term (current) drug therapy; Z98.890 Other specified postprocedural states
CPT/HCPCS: 46255; 88304; J0131; J2250; J2795; J3010

== ENCOUNTER → 2024-01-15 07:56 | Outpatient (BNV) | payer OTHER, SELFPAY | PROVIDERS: PCP Physician Assistant Medical; Visit Provider Surgery | DX: K64.8 Other hemorrhoids (principal) | CPT/HCPCS: 46255 ==

== ENCOUNTER 2024-01-28 09:03 | Outpatient (AMB) | payer OTHER, SELFPAY ==
--- NOTE | 2024-01-28 09:04 | MHC.OFFVIS ---
Intake Intake Visit Reasons: S/P hemorroidectomy Intake Note: This patient presents for a post-op assessment status post hemorrhoidectomy. Patient c/o; reports constipation, reports has a bowel movement every 3 days, reports rectal bleeding with bowel movments. 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 He states that he did have some pain the 1st few days postop. He has a little bit of blood with bowel movements still. Otherwise, he says he seems to be doing well. [facility] Medical History Hemorrhoids that prolapse with straining and require manual replacement back inside anal canal Post traumatic stress disorder (PTSD) Severe right groin pain Enlarged prostate Chronic low back pain Surgical History Hx of hemorrhoidectomy (~01/15/24) Hx of colonoscopy H/O hernia repair Family History Father History of cancer of unknown primary site Maternal Grandfather History of cancer of unknown primary site Social History Household Members: Spouse Housing: House Are you a primary respiratory care assistant to a significant other at home: No Do you presently have visiting nurse or other home services: No Alcohol intake: former Patient Tobacco Use Status: Former Tobacco user Second Hand Smoke Exposure: No Review of Systems Const Denies chills and Denies fever(s) Card Denies chest pain, Denies dyspnea and Denies dyspnea on exertion Resp Denies cough, Denies dyspnea and Denies dyspnea on exertion GI Reports hematochezia, Denies change in bowel habits and Reports constipation Denies hematuria and Denies difficulty urinating Musc Denies back pain and Denies limited range of motion Neuro Denies focal weakness and Denies convulsions Psych Denies depression and Denies mood swings Physical Exam Const General: comfortable and no acute distress Resp Effort & Inspection: normal respiratory effort GI Other: Rectal exam shows the hemorrhoidectomy site to be healing well, no induration, no discharge, no redness Assessment & Plan Assessment & Plan (1) Hemorrhoids that prolapse with straining and require manual replacement back inside anal canal: Code(s): K64.2 - Third degree hemorrhoids Plan: Status post hemorrhoidectomy x1 column. He is doing very well. His incision is healing well. I advised him to avoid straining and constipation. He wants a refill for his Colace He can otherwise follow up on a p.r.n. basis. Coding Level of Care Code Global (21346) Diagnoses Hemorrhoids that prolapse with straining and require manual replacement back inside anal canal K64.2
== END 2024-01-28 09:20 | disposition home or self-care (01) ==
PROVIDERS: PCP Physician Assistant Medical; Visit Provider Surgery
DX: K64.2 Third degree hemorrhoids (principal)
CPT/HCPCS: 99024

== ENCOUNTER → 2024-01-28 09:03 | Outpatient (BNVA) | payer OTHER, SELFPAY | PROVIDERS: PCP Physician Assistant Medical; Visit Provider Surgery | DX: K64.2 Third degree hemorrhoids (principal); K91.840 Postprocedural hemorrhage of a digestive system organ or structure following a digestive system procedure | CPT/HCPCS: 99212 ==